=== PATIENT | female | born 1940 | race Caucasian/White ===

== ENCOUNTER 2025-06-04 16:53 | Emergency (ER) | payer OTHER, SELFPAY ==
[2025-06-04] VITALS (8 sets, daily range): BP systolic 101–125; BP diastolic 60–80; BMI 22.7
--- NOTE | 2025-06-04 19:33 | ED.GENMED ---
History of Present Illness
<Blaine Sampson MD, Resident - Last Filed: 06/04/25 20:56>
General
Chief Complaint: Swelling
Source: patient and significant other
Time Seen by Provider: 06/04/25 19:07
History of Present Illness
History of Present Illness:
Patient is an 85-year-old female with PMH of hypertension, hyperlipidemia, and breast cancer s/p lumpectomy who presents to the [place] ED with 1 day of bilateral lower extremity edema. Patient noticed the edema yesterday, which prompted her to
present this afternoon to her PCP, who referred her to the ED due to lightheadedness at the office. Patient's legs are mildly uncomfortable due to the edema. She has never had swelling like this before. Patient endorses some recent gassiness.
Otherwise, no associated symptoms, including chest pain, shortness of breath, cough, wheezing, recent illnesses or sick contacts, N/V/D, F/F/C, dysuria, frequency, or urgency.
Past History
<Blaine Sampson MD, Resident - Last Filed: 06/04/25 20:56>
Past History
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
ED Past Surgical History: Gynecological (right lumpectomy) and Orthopedic (Laminectomy)
Social History
Tobacco: Non-smoker
Alcohol: Occasional
Personal:
Living: with family
Review of Systems
<Blaine Sampson MD, Resident - Last Filed: 06/04/25 20:56>
Review of Systems
Constitutional: Denies fever, weight loss, fatigue or chills
Respiratory: Denies cough or trouble breathing
Cardiac: Reports other (Bilateral lower extremity 1+ pitting edema); Denies chest pain
ABD/GI: Denies abdominal pain, nausea, vomiting, diarrhea or bloody stools
: Denies dysuria, frequency or urgency
Neurological: Denies weakness or numbness
Phy Exam
<Blaine Sampson MD, Resident - Last Filed: 06/04/25 20:56>
Physical Exam
Physical Exam:
General: NAD. Conversant. Well-appearing.
CV: RRR. S1, S2 noted. No M/R/G. B/L LE 1+ pitting edema extending from feet to just below the knee. No LE pain, erythema, or warmth.
Pulm: CTAB. No wheezes or crackles. No cyanosis.
GI: Soft, nontender. Nondistended. No masses.
Neuro: A&O x 2. No focal deficits. CN II through XII grossly intact.
Scores
<Blaine Sampson MD, Resident - Last Filed: 06/04/25 20:56>
Heart Failure Risk
Heart Failure Risk Score: Not Applicable
Course
<Blaine Sampson MD, Resident - Last Filed: 06/04/25 20:56>
Orders/Labs/Results
Orders:
Orders
06/04/25 17:01
Electrocardiogram (*1) Urgent
Reason for Study: Other
Other Reason for Exam: swelling
06/04/25 17:02
EKG- Treatment ONCE
06/04/25 19:31
Urinalysis Reflex To Culture Urgent
Date Specimen was Collected: 06/04/25
Time Specimen was Collected: 20:51
CR Chest - 2 Views Urgent
Comment:
Reason For Exam: lower extremity edema
06/04/25 19:33
Complete Blood Count/With Diff Urgent
Comprehensive Metabolic Panel Urgent
NT-proBNP Urgent
Troponin I Urgent
Abnormal Lab Results
06/04/25
19:33
MCH 31.1 H pg
(27.0-31.0)
MPV 11.4 H fL
(7.4-10.4)
Monocytes % 9.8 H %
(1.7-9.3)
Creatinine 1.2 H mg/dL
(0.6-1.0)
Glucose 125 H mg/dl
(70-99)
06/04/25 19:33
06/04/25 19:33
Vital Signs
Initial and Last Documented VS:
Initial Vital Signs
Temp Pulse Resp BP Pulse Ox
97.5 F 95 16 120/69 96
06/04/25 17:00 06/04/25 17:00 06/04/25 17:00 06/04/25 17:00 06/04/25 17:00
Last Documented Vital Signs
Temp Pulse Resp BP Pulse Ox
98 F 85 22 117/80 95
06/04/25 19:41 06/04/25 19:45 06/04/25 19:45 06/04/25 19:32 06/04/25 19:51
<Luis Pizarro, DO - Last Filed: 06/04/25 20:54>
Orders/Labs/Results
Orders:
Orders
06/04/25 17:01
Electrocardiogram (*1) Urgent
Reason for Study: Other
Other Reason for Exam: swelling
06/04/25 17:02
EKG- Treatment ONCE
06/04/25 19:31
Urinalysis Reflex To Culture Urgent
Date Specimen was Collected: 06/04/25
Time Specimen was Collected: 20:51
CR Chest - 2 Views Urgent
Comment:
Reason For Exam: lower extremity edema
06/04/25 19:33
Complete Blood Count/With Diff Urgent
Comprehensive Metabolic Panel Urgent
NT-proBNP Urgent
Troponin I Urgent
Abnormal Lab Results
06/04/25
19:33
MCH 31.1 H pg
(27.0-31.0)
MPV 11.4 H fL
(7.4-10.4)
Monocytes % 9.8 H %
(1.7-9.3)
Creatinine 1.2 H mg/dL
(0.6-1.0)
Glucose 125 H mg/dl
(70-99)
06/04/25 19:33
06/04/25 19:33
Vital Signs
Initial and Last Documented VS:
Initial Vital Signs
Temp Pulse Resp BP Pulse Ox
97.5 F 95 16 120/69 96
06/04/25 17:00 06/04/25 17:00 06/04/25 17:00 06/04/25 17:00 06/04/25 17:00
Last Documented Vital Signs
Temp Pulse Resp BP Pulse Ox
98 F 85 22 117/80 95
06/04/25 19:41 06/04/25 19:45 06/04/25 19:45 06/04/25 19:32 06/04/25 19:51
<Blaine Sampson MD, Resident - Last Filed: 06/04/25 20:56>
MDM/Problems Addressed
Differential Diagnosis Includes:
Heart failure
Renal insufficiency
Chronic venous insufficiency
Medication-induced edema
Hypoalbuminemia
Lymphedema
Bilateral DVT
MDM/Problems Addressed:
Assessment: Patient is an 85-year-old female with PMH of HTN, HLD, and breast cancer s/p lumpectomy presents to the [place] ED with 1 day of bilateral lower extremity edema who was referred to the ED by her PCP this afternoon due to
lightheadedness in the office. No other associated symptoms. AFVSS, no leukocytosis, troponin <0.012, creatinine 1.2, albumin normal. proBNP 2620. CXR shows no obvious pulmonary edema. Suspect chronic compensated heart failure, workup ongoing.
Plan:
#Bilateral lower extremity edema
EKG
Labs: CBC, CMP, proBNP, troponin, UA
Imaging: CXR
Recommend follow-up outpatient with cardiology/PCP, echocardiogram
<Blaine Sampson MD, Resident - Last Filed: 06/04/25 20:56>
*Pulse Oximetry
SaO2: 95
Oxygen Mode of Delivery: Room air
Patient hypoxic: no
*Critical Care Note
Total Time (30-74mins, 75-104mins- exclusive of procedures): Not Applicable
ED Attending Note
<Blaine Sampson MD, Resident - Last Filed: 06/04/25 20:56>
-
Portions of this chart may have been created with voice recognition software.� Occasional wrong word or��sound alike� substitutions may have occurred due to the inherent limitations of voice recognition software.
<Luis Pizarro DO - Last Filed: 06/04/25 20:54>
ED Attending Note
Patient seen and examined by attending physician: Yes
I performed the substantive portion of visit, reviewed & personally made and approve the management plan that is documented in note by myself or BRANDY.: Yes
I performed a history and physical exam of patient and discussed management with resident, I reviewed resident's note and agree with documented findings and plan of care.: Yes
ED Attending Note:
85-year-old female brought to the ER by family for evaluation of lightheadedness noted at PCP office along with new complaint of peripheral edema. Patient denies shortness of breath or chest pain. She denies paroxysmal nocturnal dyspnea. She
states she has been feeling otherwise well. Vital signs reviewed, patient is awake, alert, appears no acute distress, heart regular rate and rhythm without murmurs or ectopy, lungs are clear to auscultation that wheezes rales or rhonchi, abdomen
soft and nontender, extremities with 2+ edema symmetric to the knees, GCS is 15. I discussed with patient and significant other present at bedside very reassuring workup here today with exception of elevation in BNP and minimal elevation of
creatinine. Chest x-ray does not show evidence for significant pulmonary edema. Will initiate oral Lasix. Awaiting urinalysis. I reviewed workup in the ER with her primary care provider-nurse practitioner Aida, who would agree with plan for
initiation of oral furosemide and close outpatient follow-up with cardiology.
Discharge Plan
Departure
Prescriptions:
No Action
amlodipine 5 MG tablet
5 mg PO DAILY
pravastatin 10 MG tablet
10 mg PO QPM
exemestane 25 MG tablet
25 mg PO DAILY
Patient Comments:
after lunch
losartan 25 MG tablet
25 mg PO DAILY
Ca-D3-mag [id number] [Calcium 600-D3 Plus (mag-zinc)] 1 EACH tablet
1 ea PO DAILY
cyanocobalamin (vitamin B-12) 1,000 MCG capsule
1,000 mcg PO DAILY
cholecalciferol (vitamin D3) [Vitamin D3] 1,000 UNIT capsule
3,000 unit PO DAILY
naproxen 500 MG tablet
500 mg PO BID Qty: 10 0RF
Rx Instructions:
Take with food.
Referrals:
Zaria Edmonds MD [Family Provider, Family Practice]
Interventions
Interventions:
*Risk Screen - Suicide Last Done: 06/04/25 17:01
*General Assessment Last Done: 06/04/25 19:34
*Neglect/Abuse Screening Last Done: 06/04/25 17:01
*ED- Fall Risk Assessment Last Done: 06/04/25 19:34
*ED COVID-19 Vaccine History Last Done: 06/04/25 19:34
*ED Influenza Vaccine History Last Done: 06/04/25 19:34
ED- Cardiac Assessment Last Done: 06/04/25 19:38
ED- Pulmonary Assessment Last Done: 06/04/25 19:38
ED-Skin Assessment Last Done: 06/04/25 19:38
Discharge Date and Time
Print Language: SYRIAN
[2025-06-04 19:39] LABS: Hematocrit 39.0 % (37.0-47.0); Hemoglobin 13.4 g/dL (12.0-16.0); Mean Corp Hgb Conc. 34.4 g/dL (33.0-37.0); Mean Corpuscular Volume 90.5 fL (81.0-99.0); Nucleated Red Blood Cells % 0 %; Platelet Count 145 10^3/uL (130-400); Red Cell Dist. Width 12.8 % (11.5-14.5)
[2025-06-04 20:03] LABS: ALT (SGPT) 16 U/L (0-35); AST (SGOT) 26 U/L (14-36); Albumin 4.5 g/dl (3.5-5.0); Alkaline Phosphatase 87 U/L (38-126); Blood Urea Nitrogen 17 mg/dl (7-17); Calcium 9.5 mg/dl (8.4-10.2); Carbon Dioxide 23 mmol/L (22-30); Chloride 105 mmol/L (98-107); Estimated Creatinine Clearance 30 ml/min; Glucose 125 mg/dl (70-99); Potassium 4.0 mmol/L (3.5-5.1); Sodium 135 mmol/L (135-145); Total Protein 7.5 g/dl (6.3-8.2); eGFR 44.64
[2025-06-04 20:17] LABS: Troponin I < 0.012 ng/ml
[2025-06-04 21:05] LABS: Urine Character Clear (Clear)
[2025-06-04 21:14] LABS: Urine Red Blood Cell 0-2 /HPF (0-2)
[2025-06-04 21:15] LABS: Urine White Cell 21-25 /HPF (0-5)
== END 2025-06-04 22:39 | disposition home or self-care (01) ==
LOC: EMR 16:53
PROVIDERS: Student in an Organized Health Care Education/Training Program; EMERGENCY PHYSICIAN Emergency Medicine; FAMILY PHYSICIAN Family Medicine
DX: R60.0 Localized edema (principal); I10 Essential (primary) hypertension; E78.00 Pure hypercholesterolemia, unspecified; Z85.3 Personal history of malignant neoplasm of breast
CPT/HCPCS: 99284; 71046; 80053; 81003; 81015; 83880; 84484; 85025; 87086; 93005